=== PATIENT | male | born 1995 | race Caucasian/White ===

== ENCOUNTER 2018-05-27 17:00 | Inpatient (IN) | payer OTHER ==
[~2018-05-27] VITALS: Ht 190.5 cm; Wt 97.5 kg
[2018-05-27 17:22] VITALS: BP_SYST 105
[2018-05-27 18:09] LABS: BASOPHILS # (AUTO) 0.1 K/uL (0.0-0.2); BASOPHILS % (AUTO) 0.6 % (0.0-2.0); CALCIUM 9.4 mg/dL (8.4-11.0); CREATININE 0.92 mg/dL (0.55-1.30); EOSINOPHILS % (AUTO) 0.1 % (0.0-4.0); HEMATOCRIT 47.8 % (36-54); LYMPHOCYTES # (AUTO) 1.1 K/uL (1.0-5.5); LYMPHOCYTES % (AUTO) 8.4 % (20.5-51.5); MEAN CORPUSCULAR HEMOGLOBIN 31 pg (27-31); MEAN CORPUSCULAR HGB CONC 34 % (32-36); MEAN CORPUSCULAR VOLUME 92 fL (79.0-98.0); MONOCYTES # (AUTO) 0.7 K/uL (0.0-1.0); MONOCYTES % (AUTO) 5.3 % (1.7-9.3); NEUTROPHILS # (AUTO) 11.4 K/uL (1.8-7.7); NEUTROPHILS % (AUTO) 85.6 % (40.0-70.0); PLATELET COUNT (AUTO) 215 K/uL (130-430); RED BLOOD CELL COUNT(AUTO) 5.21 MIL/uL (4.2-6.2); RED CELL DISTRIBUTION WIDTH 13.3 % (9.0-15.0); WHITE BLOOD COUNT (AUTO) 13.3 K/uL (4.8-10.8)
[2018-05-27 18:14] LABS: ALBUMIN 4.3 g/dL (3.4-4.8); TOTAL BILIRUBIN 0.7 mg/dL (0.0-1.0)
--- NOTE | 2018-05-27 18:30 | NUR ---
Placed in room 3.
[2018-05-27] MEDS ORDERED: NACL 0.9% 1,000 ML IV ONE (18:45)
[2018-05-27] MEDS ORDERED: ONDANSETRON HCL 4 MG/2 ML VIAL IVP ONE (18:45)
--- NOTE | 2018-05-27 18:45 | NUR ---
Pt presents to ER c/o RLQ abdominal pain since last night 4/10 on pain scale and nausea / vomiting. Pt denies any other complaint or symptom. Pt AOX4, ambulatory, speaking full sentences, no sings of acute distress, father at bedside.
--- NOTE | 2018-05-27 19:20 | NUR ---
Pt taken to radiology via wheelchair for CT scan.
--- NOTE | 2018-05-27 19:35 | NUR ---
# 20 gauge angiocath placed to RAC. Use of asceptic technique. Opsite placed over site. Blood return noted. Flushed with 10 cc of normal saline. No evidence of infiltration noted. Patient tolerated well.
--- NOTE | 2018-05-27 20:00 | NUR ---
Medication reconciliation completed with information provided by patient, "no home meds". Any prior medication reconciliation on file was reviewed and corrected.
--- NOTE | 2018-05-27 20:00 | NUR ---
No adverse reactions noted after medication administration. Will continue to monitor.
--- NOTE | 2018-05-27 20:05 | NUR ---
End of life care decisions discussed with patient by Dr. Paredes. Opportunity for questions and concerns addressed. Patient's code status is FULL CODE, paperwork completed and placed in chart.
--- NOTE | 2018-05-27 20:10 | NUR ---
ER MD Paredes at bedside for medical evaluation.
[2018-05-27] MEDS ORDERED: ceFAZolin SODIUM 2 GM in D5W 100 ML IV ONE (20:15)
[2018-05-27] MEDS ORDERED: ceFAZolin SODIUM 1 GM VIAL ONE (20:30)
[2018-05-27 20:35] LABS: INR 1.1 (0.80-1.20)
--- NOTE | 2018-05-27 21:00 | NUR ---
Dr. Hopkins at [facility] for medical evaluation.
[2018-05-27] MEDS ORDERED: LR 1,000 ML IV.SOLN IV ONE (21:20)
[2018-05-27] MEDS ORDERED: BUPIVACAINE /PF 0.5% 30 ML VIAL INJ ONE (21:20)
[2018-05-27] MEDS ORDERED: PROPOFOL 200MG/ 20ML VIAL (DIPRIVAN) IV ONE (21:20)
[2018-05-27] MEDS ORDERED: LIDOCAINE 2%, 20 ML MDV INJ ONE (21:20)
[2018-05-27] MEDS ORDERED: MIDAZOLAM HCL 5 MG/5 ML VIAL IVP ONE (21:20)
[2018-05-27] MEDS ORDERED: GLYCOPYRROLATE 0.2 MG/ML VIAL IJ ONE (21:20)
[2018-05-27] MEDS ORDERED: fentaNYL CITRATE/PF 100 MCG/2 ML AMP IVP ONE (21:20)
[2018-05-27] MEDS ORDERED: SEVOFLURANE 15 MIN GAS INH ONE (21:20)
[2018-05-27] MEDS ORDERED: ROCURONIUM BROMIDE 10 MG/ML (ZEMURON) IV ONE (21:20)
[2018-05-27] MEDS ORDERED: NEOSTIGMINE METHYLSULFATE 1 MG/ML, 10 ML VIAL IVP ONE (21:20)
--- NOTE | 2018-05-27 21:40 | NUR ---
Patient taken to OR at this time.
[2018-05-27] MEDS ORDERED: ACETAMINOPHEN 325 MG TABLET PO PRN (21:45)
[2018-05-27] MEDS ORDERED: fentaNYL CITRATE/PF 100 MCG/2 ML AMP IVP PRN ×2 (22:15)
[2018-05-27] MEDS ORDERED: ONDANSETRON HCL 4 MG/2 ML VIAL IVP PRN (22:15)
[2018-05-27] MEDS ORDERED: KETOROLAC TROMETHAMINE 30 MG VIAL IVP PRN (22:15)
[2018-05-27 22:17] VITALS: BP_SYST 105
--- NOTE | 2018-05-27 23:17 | NUR ---
ADMISSION NOTE Received patient from OR via sandra, received report from RN. Patient admitted with diagnosis of appendicitis. Patient is s/p laparoscopic appendectomy. Patient oriented to hospital routine, call light, toileting and safety-patient verbalized understanding.
[2018-05-27 23:25] VITALS: BP_SYST 132
[2018-05-27] MEDS ORDERED: metroNIDAZOLE 500 mg/NS 200 ML IV ONE (23:40)
[2018-05-27] MEDS ORDERED: CEFAZOLIN 2 GM IVPB PREMIX 50 ML IV ONE (23:41)
[2018-05-27] MEDS: D5/0.45 NS 1,000 ML IV SCH (23:55)
[2018-05-27] MEDS: metroNIDAZOLE 500 mg/NS 100 ML IV SCH (23:56)
[2018-05-28] MEDS: ONDANSETRON HCL 4 MG/2 ML VIAL IVP PRN ×3 (00:15→14:12)
--- NOTE | 2018-05-28 03:30 | NUR ---
Rounds: Patient is sleeping in bed, no signs or symptoms of acute distress noted. Safety and fall precautions in place. Will continue monitoring.
[2018-05-28] MEDS: CEFAZOLIN 2 GM IVPB PREMIX 50 ML IV SCH ×2 (04:27→12:11)
[2018-05-28] MEDS: metroNIDAZOLE 500 mg/NS 100 ML IV SCH (06:45)
[2018-05-28 06:50] LABS: BASOPHILS % (AUTO) 0.3 % (0.0-2.0); EOSINOPHILS % (AUTO) 0.2 % (0.0-4.0); HEMATOCRIT 44.3 % (36-54); HEMOGLOBIN 14.6 g/dL (14.0-18.0); LYMPHOCYTES # (AUTO) 1.4 K/uL (1.0-5.5); LYMPHOCYTES % (AUTO) 13.2 % (20.5-51.5); MEAN CORPUSCULAR HEMOGLOBIN 30 pg (27-31); MEAN CORPUSCULAR HGB CONC 33 % (32-36); MEAN CORPUSCULAR VOLUME 91 fL (79.0-98.0); MONOCYTES % (AUTO) 9.9 % (1.7-9.3); NEUTROPHILS # (AUTO) 7.9 K/uL (1.8-7.7); NEUTROPHILS % (AUTO) 76.4 % (40.0-70.0); PLATELET COUNT (AUTO) 201 K/uL (130-430); RED BLOOD CELL COUNT(AUTO) 4.88 MIL/uL (4.2-6.2); RED CELL DISTRIBUTION WIDTH 13.7 % (9.0-15.0); WHITE BLOOD COUNT (AUTO) 10.3 K/uL (4.8-10.8)
--- NOTE | 2018-05-28 06:50 | NUR ---
Flu vaccine refused: Patient is awake at this time, offered to administer flu shot; however, patient declined, saying that he wants to focus on his recovery first. Patient was educated regarding risks of declining flu shot, and benefits of receiving it.
--- NOTE | 2018-05-28 06:55 | NUR ---
Closing note: Patient is awake in bed, does not show any signs or symptoms of acute distress. IV antibiotics infusing to right AC at this time. No complaints of nausea or pain. All needs met and attended to. Will endorse care dayshift RN.
[2018-05-28 06:56] LABS: ALBUMIN 3.5 g/dL (3.4-4.8); CALCIUM 8.6 mg/dL (8.4-11.0); CREATININE 1.05 mg/dL (0.55-1.30); POTASSIUM 3.6 mmol/L (3.5-5.1); TOTAL BILIRUBIN 0.6 mg/dL (0.0-1.0)
--- NOTE | 2018-05-28 07:25 | NUR ---
Opening Note patient resting in bed, awake and alert, HOB elevated, no complaints of pain at this time, breathing unlabored on room air, IV fluids infusing, site patent, educated patient on use of call light for assistance, verbalized understanding, call light and bedside table left within reach, will be back to check on patient
[2018-05-28] MEDS: D5/0.45 NS 1,000 ML IV SCH ×2 (08:00→21:28)
[2018-05-28 08:01] VITALS: BP_SYST 114
[2018-05-28] MEDS: HYDROmorphone 1 MG INJ. 1 MG/ML AMPUL IVP PRN ×2 (08:04→14:13)
--- NOTE | 2018-05-28 08:13 | NUR ---
Pain medication administered at this time per pain scale protocol, patient educated regarding dilaudid, verbalized understanding, also educated regarding zofran, verbalized understanding, IV site remains patent, dressings are clean dry and in tact, SCDs on for DVT prophylaxis, no other needs at this time, educated patient on use of call light for assistance, verbalized understanding, call light and bedside table left within reach, will continue to monitor and reassess pain
--- NOTE | 2018-05-28 08:15 | NUR ---
Incentive Spirometer patient was educated on use of IS, verbalized understanding, return demonstration performed, reached up to [id number], educated him on frequency of use and also educated him on ambulation for today, verbalized understanding, educated patient on use of call light for assistance, verbalized understanding, call light and bedside table left within reach, will continue to monitor patient
--- NOTE | 2018-05-28 10:50 | NUR ---
Patient Resting in Bed eyes closed, breathing unlabored on room air, symmetrical chest expansion, family at bedside, safety precautions in place, call light and bedside table left within reach, will continue to monitor
[2018-05-28 12:00] VITALS: BP_SYST 115
--- NOTE | 2018-05-28 12:11 | NUR ---
Antibiotics hung at this time, patient educated about med, verbalized understanding, IV site remains patent, family at bedside, patient was able to ambulate to restroom with steady gait, educated him regarding pain management, verbalized understanding, educated patient on use of call light for assistance, verbalized understanding, call light and bedside table left within reach, will continue to monitor
--- NOTE | 2018-05-28 13:47 | NUR ---
Spoke with Dr. Harris asked if patient will be discharged today per patient and family's inquiry, MD stated to advance diet and he will be back to check on patient, will inform patient and family
--- NOTE | 2018-05-28 14:20 | NUR ---
Pain Meds administered at this time per protocol, also administered zofran, educated patient on med, verbalized understanding, IV site remains patent, educated patient on use of call light for assistance, verbalized understanding, call light and bedside table left within reach, will continue to monitor and reassess pain
[2018-05-28 16:00] VITALS: BP_SYST 126
--- NOTE | 2018-05-28 16:15 | NUR ---
Patient Ambulated to restroom, steady gait, no signs of distress, family at bedside, breathing unlabored on room air, safety precautions in place, will continue to monitor
--- NOTE | 2018-05-28 18:15 | NUR ---
Family Remains at Bedside anticipating discharge, patient has yet to pass gas or have BM, informed patient and family that MD stated he will be by tonight to check on patient, safety precautions in place, bedside table and call light left within reach, will continue to monitor
--- NOTE | 2018-05-28 19:20 | NUR ---
Closing Note patient resting in bed, awake and alert, family at bedside, dressings remain clean dry and in tact, Dr. Harris rounds, IV site remains patent, MD to change PRN pain medications, safety precautions in place, bedside table and call light left within reach, endorsed to production shift supervisor nurse
[2018-05-28] MEDS ORDERED: KETOROLAC TROMETHAMINE 30 MG VIAL IVP PRN (19:30)
[2018-05-28] MEDS ORDERED: BISACODYL 10 MG/SUPPOSITORY RC PRN (19:30)
--- NOTE | 2018-05-28 20:00 | NUR ---
DR PAULINO HERE TO SEE PATIENT AND @ THE BEDSIDE , PATIENT ALERT & AWAKE , NEW ORDERS OBTAINED .
--- NOTE | 2018-05-28 20:15 | NUR ---
ASSIST PATIENT OUT OF BED TO REST ROOM AMBULATES STEADY GAIT NO SOB , SKIN DRY WARM FALL PRECAUTIONS EFFECTIVE / .
[2018-05-28 20:33] VITALS: BP_SYST 137
--- NOTE | 2018-05-28 23:18 | NUR ---
REFUSE , PATIENT REFUSE DULCOLAX 10 MG SUPPOSITORY .
[2018-05-29 00:24] VITALS: BP_SYST 109
--- NOTE | 2018-05-29 01:45 | NUR ---
TORADOL 30 MG IVP ADMINISTER FOR GENERAL PAIN 12/27 & HELPFUL / .
--- NOTE | 2018-05-29 02:56 | NUR ---
Hourly Rounding patient resting responsive to verbal stimuli chest movement symmetrical also unlabored .
--- NOTE | 2018-05-29 05:13 | NUR ---
Patient resting verbally responsive fall hourly rounding implemented no complaints made .
[2018-05-29 08:00] VITALS: BP_SYST 113
--- NOTE | 2018-05-29 08:00 | NUR ---
OPENING NOTE: RECEIVED REPORT FROM NIGHT NURSE. PATIENT IS RESTING COMFORTABLY IN BED. NO S/S OF DISTRESS OR SOB. PATIENT IS AWAKE AND ALERT, ABLE TO EXPRESS NEEDS, AND ASK FOR ASSISTANCE. IV IS PATENT AND SALINE LOCKED. VITAL SIGNS WNL, ASSESSMENT COMPLETE. CALL LIGHT IN REACH, BED IN LOWEST POSITION, AND WILL CONTINUE TO MONITOR.
--- NOTE | 2018-05-29 10:17 | NUR ---
RN ROUNDS PATIENT IS RESTING COMFORTABLY IN BED. PATIENT ABLE TO AMBULATE AROUND THE UNIT. STABLE AND NO PAIN REPORTED. PATIENT IS WANTING TO GO HOME. CALL LIGHT IN REACH, BED IN LOWEST POSITION, AND WILL CONTINUE TO MONITOR.
[2018-05-29] MEDS: D5/0.45 NS 1,000 ML IV SCH (10:19)
[2018-05-29 12:32] VITALS: BP_SYST 109
[2018-05-29 12:41] VITALS: BP_SYST 109
== END 2018-05-29 13:35 | disposition home or self-care (01) | DRG 343 ==
LOC: SED 17:00 → SMU 21:37
PROVIDERS: ADMIT Surgery; ATTEND Surgery
PROC: 0DTJ4ZZ Resection of Appendix, Percutaneous Endoscopic Approach (ICD-10-PCS; principal; 2018-05-27 21:30)
DX: K35.80 Unspecified acute appendicitis (principal); K59.00 Constipation, unspecified
CPT/HCPCS: 36415; 76700-TC; 80053; 83605; 83690-TC; 85025; 85610-TC; 85730-TC; 87040-TC; 87081; 88304; 93005; 94640; 96361; 96365; 96375; 99285; J0690; J1170; J1885; J2001; J2250; J2405; J2704; J2710; J3010; J3490; J7120